=== PATIENT | female | born 1985 | race Caucasian/White ===

== ENCOUNTER 2018-12-01 13:49 | Emergency (ER) | payer MEDICAID, SELFPAY ==
[2018-12-01 13:53] VITALS: BP 126/95; PULSE 91; RESP 16; TEMP 36.3; O2SAT 99
--- NOTE | 2018-12-01 13:55 | W.ED.GENAD ---
Discharge Plan Disposition Patient Disposition: HOME Condition: Fair Discharge Details Chief Complaint: RashLesion Clinical Impression: Urticaria Primary Care Provider: Abad Rendon ED Provider: Laura Lambert Home Meds and New Rx's Prescriptions: New prednisone 20 mg tablet 40 mg PO DAILY Qty: 8 RF: 0 Discharge Instructions Instructions: Urticaria (ED) Additional Instructions: You may continue with the Calamine lotion to help with symptoms. May try Hydrocortisone cream. Take steroids as prescribed. Please call primary care today and follow up with them next week for reevaluation. May continue with Benadryl at night. If you develop shortness of breath, difficulty breathing or other new/worsening symptoms please seek care urgently once again. Referrals: Abad Rendon MD [Primary Care Provider] - Medical Decision Making Patient is a 33 year old female presenting today with c/c of diffuse rash. Reports that rash initially began on lower extremities and has since spread to abdomen and upper extremities. Also endorses itching to face. Denies any known new exposure. Reports that she has sensitive skin and history of eczema. Denies rash like this previously. No fevers/chills, GI upset, URI symptoms. Has been using calamine lotion and compresses which have help with symptomatic management. Has been using Benadryl at night. States that itching has become severe, worsened after taking a hot shower. Will obtain UPT. UPT negative. Advised that this is most consistent with allergic reaction, unclear cause. Will treat with Prednisone. Advised on topical and OTC options for sympatomic management. discussed new/worsening symptoms and hwen to seek care urgently once again. Advised f/u with PCP next week. All of her questions and concerns were addressed, she is in agreement yash hanks. HPI General Mode of arrival: ambulatory. Date/Time Provider Initiated Documentation: 12/01/18 13:50. Limitations to Documentation: no limitations. Information obtained by: patient. History of Present Illness 33 year old F presents to the emergency department with the chief complaint of rash, described as moderate, Quality is described as burning (endorses itching primarily, can burn after shower), and is localized to the abdomen, left, right, upper extremity and lower extremity. Patient started experiencing this day(s) (3) and it has been constant. Cold therapy improves symptom(s), (can help with itching) Other factors that worsen symptoms (showering) . Patient notes rash; denies chest pain, cough, fever/chills, headaches, nausea/vomiting, shortness of breath and weakness. Patient did receive the following treatments prior to arrival, none Related Data Home Medications Medication Instructions Recorded Confirmed prednisone 40 mg PO DAILY #8 tab 12/01/18 Previous Rx's Medication Instructions Recorded prednisone 40 mg PO DAILY #8 tab 12/01/18 Allergies Allergy/AdvReac Type Severity Reaction Status Date / Time No Known Drug Allergies Allergy Unverified 12/01/18 13:56 Review of Systems Constitutional Reports as per HPI, Denies chills and Denies fever(s) ENT Denies mouth lesions, Denies nasal congestion, Denies nasal discharge, Denies sore throat, Denies throat swelling and Denies tongue swelling Cardiovascular Denies chest pain and Denies dyspnea Respiratory Denies cough, Denies dyspnea, Denies stridor and Denies wheezing Gastrointestinal Reports as per HPI, Denies abdominal pain, Denies diarrhea and Denies nausea Musculoskeletal Reports as per HPI Integumentary/Breasts Reports as per HPI and Reports rash Neurologic Reports as per HPI, Denies sensory deficit and Denies paresthesias Allergic/Immunologic Denies throat swelling, Denies tongue swelling and Denies wheezing [facility] Medical History Contraception management depression associated with third Social History Smoking/Tobacco Use Status: Never Exam Const General: cooperative, healthy appearing, comfortable, no acute distress and well developed Nutritional Appearance: average body habitus and well nourished Orientation: alert and awake [facility] Head: normal to inspection Ears: hearing grossly normal bilaterally General nose exam: external nose normal Face and sinus: normal facial exam Mouth: oral mucosae normal, lip normal, tongue normal and oropharynx normal Teeth and gingiva: dentition normal Throat: posterior oropharynx normal, tonsils normal and uvula midline Eyes General: appearance normal, both eyes and all related structures Resp Effort & Inspection: normal respiratory effort, able to speak in complete sentences and no respiratory distress Auscultation: clear to auscultation bilaterally, no rales, no rhonchi and no wheezes Cardio Rate: regular rate Rhythm: regular rhythm Heart Sounds: S1 normal Skin Rashes: rashes noted (urticarial rash to BLE, primarily on thigh, BUE, kandy on abdomen) Neuro General: alert and awake Cognition: normal cognition Speech: speech normal Gait: normal gait Sensory Exam: no sensory deficits noted Extrem General: abnormal to inspection (rash as above with excoriations to BLE), full ROM, normal capillary refill, no joint enlargement, no pedal edema, no calf tenderness and normal gait Psych Appearance: grossly normal and well kempt Mental Status: mental status grossly normal Speech and Movement: speech and movement normal
--- NOTE | 2018-12-01 14:00 | ED.GENADUL_ITS ---
Discharge Plan Disposition Patient Disposition: HOME Condition: Fair Discharge Details Chief Complaint: RashLesion Clinical Impression: Urticaria Primary Care Provider: Abad Rendon ED Provider: Laura Lambert Home Meds and New Rx's Prescriptions: New prednisone 20 mg tablet 40 mg PO DAILY Qty: 8 RF: 0 Discharge Instructions Instructions: Urticaria (ED) Additional Instructions: You may continue with the Calamine lotion to help with symptoms. May try Hydrocortisone cream. Take steroids as prescribed. Please call primary care today and follow up with them next week for reevaluation. May continue with Benadryl at night. If you develop shortness of breath, difficulty breathing or other new/worsening symptoms please seek care urgently once again. Referrals: Abad Rendon MD [Primary Care Provider] - Medical Decision Making Patient is a 33 year old female presenting today with c/c of diffuse rash. Reports that rash initially began on lower extremities and has since spread to abdomen and upper extremities. Also endorses itching to face. Denies any known new exposure. Reports that she has sensitive skin and history of eczema. Denies rash like this previously. No fevers/chills, GI upset, URI symptoms. Has been using calamine lotion and compresses which have help with symptomatic management. Has been using Benadryl at night. States that itching has become severe, worsened after taking a hot shower. Will obtain UPT. UPT negative. Advised that this is most consistent with allergic reaction, uncl ear cause. Will treat with Prednisone. Advised on topical and OTC options for sympatomic management. discussed new/worsening symptoms and hwen to seek care urgently once again. Advised f/u with PCP next week. All of her questions and concerns were addressed, she is in agreement yash hanks. HPI General Mode of arrival: ambulatory . Date/Time Provider Initiated Documentation: 12/01/18 13:50 . Limitations to Documentation: no limitations . Information obtained by: patient . History of Present Illness 33 year old F presents to the emergency department with the chief complaint of rash, described as moderate, Quality is described as burning (endorses itching primarily, can burn after shower), and is localized to the abdomen, left, right, upper extremity and lower extremity. Patient started experiencing this day(s) (3) and it has been constant. Cold therapy improves symptom(s), (can help with itching) Other factors that worsen symptoms (showering) . Patient notes rash; denies chest pain, cough, fever/chills, headaches, nausea/vomiting, shortness of breath and weakness. Patient did receive the following treatments prior to arrival, none Related Data Home Medications Medication Instructions Recorded Confirmed prednisone 40 mg PO DAILY #8 tab 12/01/18 Previous Rx's Medication Instructions Recorded prednisone 40 mg PO DAILY #8 tab 12/01/18 Allergies Allergy/AdvReac Type Severity Reaction Status Date / Time No Known Drug Allergies Allergy Unverified 12/01/18 13:56 Review of Systems Constitutional Reports as per HPI, Denies chills and Denies fever(s) ENT Denies mouth lesions, Denies nasal congestion, Denies nasal discharge, Denies sore throat, Denies throat swelling and Denies tongue swelling Cardiovascular Denies chest pain and Denies dyspnea Respiratory Denies cough, Denies dyspnea, Denies stridor and Denies wheezing Gastrointestinal Reports as per HPI, Denies abdominal pain, Denies diarrhea and Denies nausea Musculoskeletal Reports as per HPI Integumentary/Breasts Reports as per HPI and Reports rash Neurologic Reports as per HPI, Denies sensory deficit and Denies paresthesias Allergic/Immunologic Denies throat swelling, Denies tongue swelling and Denies wheezing [facility] Medical History Contraception management depression associated with third Social History Smoking/Tobacco Use Status: Never Exam Const General: cooperative, healthy appearing, comfortable, no acute distress and well developed Nutritional Appearance: average body habitus and well nourished Orientation: alert and awake [facility] Head: normal to inspection Ears: hearing grossly normal bilaterally General nose exam: external nose normal Face and sinus: normal facial exam Mouth: oral mucosae normal, lip normal, tongue normal and oropharynx normal Teeth and gingiva: dentition normal Throat: posterior oropharynx normal, tonsils normal and uvula midline Eyes General: appearance normal, both eyes and all related structures Resp Effort & Inspection: normal respiratory effort, able to speak in complete se ntences and no respiratory distress Auscultation: clear to auscultation bilaterally, no rales, no rhonchi and no wheezes Cardio Rate: regular rate Rhythm: regular rhythm Heart Sounds: S1 normal Skin Rashes: rashes noted (urticarial rash to BLE, primarily on thigh, BUE, kandy on abdomen) Neuro General: alert and awake Cognition: normal cognition Speech: speech normal Gait: normal gait Sensory Exam: no sensory deficits noted Extrem General: abnormal to inspection (rash as above with excoriations to BLE), full ROM, normal capillary refill, no joint enlargement, no pedal edema, no calf tenderness and normal gait Psych Appearance: grossly normal and well kempt Mental Status: mental status grossly normal Speech and Movement: speech and movement normal
== END 2018-12-01 14:26 | disposition home or self-care (01) ==
LOC: ER 14:34
PROVIDERS: Emergency Provider Physician Assistant; PCP Internal Medicine
DX: L50.9 Urticaria, unspecified (principal)
CPT/HCPCS: 81025; 99283

== ENCOUNTER 2020-04-23 17:53 | Outpatient (REF) | payer MEDICAID, SELFPAY ==
[2020-04-25 13:01] LABS: COVID-19 RT-PCR UVMMC Result Negative (Negative)
== END 2020-04-23 18:13 ==
LOC: NCHCN 17:53
PROVIDERS: PCP Internal Medicine; Visit Provider Nurse Practitioner Family
DX: Z11.59 Encounter for screening for other viral diseases (principal)
CPT/HCPCS: U0003

== ENCOUNTER 2020-09-02 00:41 | Outpatient (CLI) | payer MEDICAID, SELFPAY ==
--- NOTE | 2020-09-02 06:15 | DI.MAMMO_ITS ---
EXAM: MG MAMMO DIAGNOSTIC BI CLINICAL HISTORY: B/L nipple discharge, spontaneous,[id number]. COMPARISON: US US BREAST RT COMPLETE from 09/02/2020 TECHNIQUE: Craniocaudal and mediolateral oblique Full Field Digital Mammography views of the both br easts with Computer Aided Diagnosis followed by Tomosynthesis and bilateral breast ultrasound. FINDINGS: Mammography/Tomosynthesis: Masses/Architectural Distortion: None seen. Microcalcifications: No suspicious pleomorphic-type are seen. Skin Thickening/Nipple Retraction: None. Breast US: Echotexture: Normal appearance of the glandular tissue. Shadowing: No suspicious foci. Cyst: Small cysts, measuring less than 1 cm are seen in the spine subareolar regions of both breasts. Solid lesions: None seen. Ductal dilation: None. IMPRESSION: 1. No evidence of malignancy is noted. 2. Unless there is more urgent need, follow-up screening mammography is recommended, as per [place] [employer] guidelines. BI-RADS Category 2 - Benign Findings Breast Density - Category C - Heterogeneously dense The mammogram demonstrates the patient's breast tissue is dense. Dense breast tissue is very common a nd is not abnormal but dense breast tissue can make it harder to find cancer on a mammogram. Also, de nse breast tissue may increase their breast cancer risk. This information about the result of the [facility] mogram report was provided to the patient to raise their awareness. Use this report when you speak wi th the patient about their risks for breast cancer, which includes their family history. At that time , you may recommend for more screening tests (Ultrasound or MRI) as they might be useful based on the ir risk. A negative radiographic report should not delay biopsy if a dominant or clinically suspicious mass is present. Up to ten percent of cancers are not identified on mammography. A negative report may reinforce clinical impression. Adenosis and dense breasts may obscure an underlying neoplasm. False positive reports average 6 to 10%. Patient will receive a letter notifying them of these results.
== END 2020-09-02 01:01 ==
PROVIDERS: PCP Internal Medicine; Visit Provider Obstetrics & Gynecology
DX: N64.52 Nipple discharge (principal); N60.02 Solitary cyst of left breast; N60.01 Solitary cyst of right breast; R92.2 Inconclusive mammogram
CPT/HCPCS: 76642; 77062; 77066; G0279

== ENCOUNTER 2020-10-06 16:25 | Outpatient (REF) | payer MEDICAID, SELFPAY ==
[2020-10-06 20:09] LABS: Abs Immature Grans 0.02 10^3/uL (0.0-0.06); Absolute Basophil Count 0.02 10^3/uL (0.0-0.2); Absolute Eosinophil Count 0.34 10^3/uL (0.0-0.7); Absolute Lymphocyte Count 1.87 10^3/uL (1.2-3.4); Absolute Monocyte Count 0.36 10^3/uL (0.1-0.8); Absolute Neutrophil Count 4.18 10^3/uL (1.2-6.7); Basophils % 0.3; HCT 36.9 % (36.0-46.0); Immature Grans % 0.3; Lymphocytes % 27.5; MCH 30.2 pg (27.0-33.0); MCHC 32.5 % (32.0-36.0); MCV 92.9 fL (80-95); MPV 10.7 fL (8.0-11.0); Monocytes % 5.3; Neutrophils % 61.6; Nucleated RBC 0 %; Platelet Count 208 10^3/uL (130-400); RBC 3.97 10^6/uL (3.93-5.22); RDW 12.7 % (11.7-14.6); RDW-SD 43.8 fL; WBC 6.79 10^3/uL (4.4-10.8)
[2020-10-06 20:37] LABS: ALT 14 U/L (14-59); AST 14 U/L (15-37); Alkaline Phosphatase 73 U/L (46-116); BUN 15 mg/dL (7-18); Bilirubin, Total 0.8 mg/dL (0.2-1.0); CREATININE 0.82 mg/dL (0.55-1.02); Calcium 8.8 mg/dL (8.5-10.1); Chloride 104 mmol/L (98-107); Glucose 96 mg/dL (74-106); Potassium 4.5 mmol/L (3.5-5.1); Sodium 138 mmol/L (136-145); TSH (W/Ref FT4) 1.36 uIU/mL (0.36-3.74); Total Protein 7.5 g/dL (6.4-8.2)
== END 2020-10-06 16:45 ==
LOC: NCHCN 16:25
PROVIDERS: PCP Nurse Practitioner; Visit Provider Nurse Practitioner
DX: Z13.29 Encounter for screening for other suspected endocrine disorder (principal); R51.9 Headache, unspecified
CPT/HCPCS: 80053; 84443; 85025

== ENCOUNTER 2021-09-16 02:16 | Outpatient (CLI) | payer MEDICAID, SELFPAY ==
--- NOTE | 2021-09-16 08:30 | DI.US_ITS ---
Exam(s) US PELVIS TRANSVAGINAL EXAM: US PELVIS TRANSVAGINAL CLINICAL HISTORY: anatomy,DYSFUNCTIONAL UTERINE BLEEDING,PELVIC PAIN,OLIGOMENORRHEA,N93.8 TECHNIQUE: Ultrasound of the pelvis was performed both transabdominal and transvaginal. COMPARISON: No exams were available for comparison FINDINGS: UTERUS: Anteverted and nongravid Measures 7.6 cm length x 5 cm AP x 5 cm wide. There are no uterine fibroids. Endometrial thickness measures 1.2 mm. There is no fluid in the endometrial canal. CERVIX: There are no obvious nabothian cysts. RIGHT OVARY: Measures 3.1 x 2.1 x 2.8 cm Contains a cyst measuring 1.6 x 2 x 1.5 cm. This cyst contains a thin septation therein. LEFT OVARY: The left ovary was not able to be seen on this study. This is possibly related to abundant bowel loo ps. CUL-DE-SAC: No free fluid evident. IMPRESSION: 1. Normal appearing uterus and age-appropriate endometrium. 2. There is a septated 2 x 16 millimeters cyst in the right ovary. Left ovary was not seen on this s tudy. 3. No free fluid evident in the adnexal regions and cul-de-sac. DATA REPOSITORY:
== END 2021-09-16 02:36 ==
PROVIDERS: PCP Nurse Practitioner; Visit Provider Obstetrics & Gynecology
DX: N91.5 Oligomenorrhea, unspecified (principal); N93.8 Other specified abnormal uterine and vaginal bleeding; R10.2 Pelvic and perineal pain; N83.291 Other ovarian cyst, right side
CPT/HCPCS: 36415; 80053; 76830; 76856; 83001; 83002; 83498; 84146; 84443

== ENCOUNTER 2021-10-21 17:38 | Outpatient (CLI) | payer MEDICAID, SELFPAY ==
--- NOTE | 2021-10-21 | DI.RAD_ITS ---
Exam(s) XR ANKLE RT COMPLETE EXAM: XR ANKLE RT COMPLETE CLINICAL HISTORY: FALL WITH INVERSION INJURY/PERSISTANT PAIN RIGHT POSTERIOR ,MALEOLUS. TECHNIQUE: 2D digital imaging was performed. COMPARISON: No exams were available for comparison FINDINGS: Mild soft tissue swelling laterally but no fracture or widening of the mortise. Talar dome unremarka ble. No degenerative changes nor osseous lesions. No evidence of osseous tarsal coalition. IMPRESSION: No fracture evident. DATA REPOSITORY: RADIATION DOSE DELIVERED:
--- NOTE | 2021-10-21 18:26 | DI.VRAD_ITS ---
PROCEDURE INFORMATION: Exam: XR Right Ankle Exam date and time: 10/21/2021 17:46 Age: 35 years old Clinical indication: Injury or trauma; Fall; Sprain or strain; Ankle; Right TECHNIQUE: Imaging protocol: XR Right ankle. Views: 3 or more views. COMPARISON: No relevant prior studies available. FINDINGS: Bones/joints: No acute fracture or subluxation. Soft tissues: Lateral ankle soft tissue swelling. IMPRESSION: No acute bony pathology. Dictated and Authenticated by: Ayesha Trinidad MD. Ordering:PRISCILLA Mirza MD
== END 2021-10-21 17:58 ==
PROVIDERS: PCP Nurse Practitioner; Visit Provider Family Medicine
DX: M25.571 Pain in right ankle and joints of right foot (principal); R22.41 Localized swelling, mass and lump, right lower limb
CPT/HCPCS: 73610

== ENCOUNTER 2022-01-07 22:25 | Emergency (ER) | payer MEDICAID, SELFPAY ==
[2022-01-07 22:26] VITALS: BP 125/78; PULSE 87; RESP 18; TEMP 36.9; O2SAT 98
[2022-01-07] MEDS: Ondansetron O.D.T. 4 MG TABEF PO ×2 (22:34→23:33)
[2022-01-07] MEDS: Ondansetron O.D.T. 4 MG TABEF (22:34)
--- NOTE | 2022-01-07 23:14 | W.ED.GENAD ---
Discharge Plan Disposition Patient Disposition: HOME Condition: Stable Discharge Details Clinical Impression: Alcohol abuse Primary Care Provider: Eliana Hutchins ED Provider: lAlyson Travis Home Meds and New Rx's Prescriptions: Continued Excedrin Migraine 250-250-65 mg tablet 1 tab PO PRN PRN0RF omega-3 fatty acids [Fish Oil Concentrate] 1,000 mg capsule 1,000 mg PO DAILY PRN0RF magnesium oxide 500 mg capsule 500 mg PO DAILY PRN0RF etonogestrel-ethinyl estradiol [NuvaRing] 0.12-0.015 mg/24 hr ring 1 vag ring vaginal Q4W Qty: 3 3RF Rx Instructions: leave in place for 3 weeks of a 4-week cycle Discharge Instructions Instructions: Abuse of Alcohol (ED) Additional Instructions: You will be contacted by [facility] human services tomorrow to establish care with a counselor Please take Zofran as needed for nausea and vomiting You may want to stick to clear liquids including Gatorade in the morning Ibuprofen and Tylenol as needed for headache Should you have thoughts of wanting to harm yourself you must return to the emergency room immediately I am listing a provider for you to follow-up with, if you do not hear from them in the morning tomorrow please call to schedule an appointment Referrals: BART SANDHU [OTHER] - 1 day (domestic issue) Eliana Hutchins [Primary Care Provider] - Discharge Data Discharge Date/Time-TO BE ENTERED AT DEPARTURE: 01/08/22 00:13 Medical Decision Making Patient appears intoxicated but is pleasant alert and oriented She is quite nauseous and has vomited several times Her vitals are stable She adamantly denies suicidal ideation and her friend Gayathri who she was with this evening states that she has not mentioned any suicidality in fact patient states that she has been able to continue on with her daily work schedule and taking care of her kids which is actually helping She does state that she has had trouble finding a counselor and she has been proactive about doing fair in the past week since she found out situation with her I therefore contacted our on-[facility], Lois who will call patient tomorrow should she be discharged At 2345, patient is vomiting, we will be sure patient is able to stand with one person assist and discharge her in the care of her friend who will stay with her overnight should she be able to be assisted out to her vehicle and into her home I think at time of my reassessment, she is safe for discharge with a friend, Vanita who has agreed to accept care of patient at time of discharge and will stay with her over the evening HPI General Date/Time Provider Initiated Documentation: 01/07/22 22:30. HPI Narrative: This 36-year-old female presents with report of intoxication from alcohol. Patient reportedly is going through a difficult time with her and this evening drank a bottle of wine with her friend who was there for support. Patient a dose of melatonin because she was tired and fell asleep. She was snoring loudly with me and her friend nervous and called 911. EMS arrived and patient was very anxious and so they brought her to the emergency room for assessment. Patient denies any suicidal ideation. She denies any attempts to harm self. She states that she simply drink alcohol because she was stressed this evening. She does not reportedly drink alcohol on a regular basis. There is no chance of . She denies any additional illicit drug use. She adamantly denies any intent to harm herself. She did take 5 mg of melatonin. Related Data Home Medications Medication Instructions Recorded Confirmed bjilasn-llylzdkbfrumw-opskgidl 250 1 tab PO PRN PRN tab 04/14/21 08/20/21 mg-250 mg-65 mg tablet (Excedrin Migraine) magnesium oxide 500 mg capsule 500 mg PO DAILY PRN cap 08/20/21 08/20/21 omega-3 fatty acids 1,000 mg 1,000 mg PO DAILY PRN 08/20/21 08/20/21 capsule (Fish Oil Concentrate) etonogestrel 0.12 mg-ethinyl 1 vag ring VAGINAL Q4W #3 ea 10/02/21 10/02/21 estradiol 0.015 mg/24 hr vaginal ring (NuvaRing) Previous Rx's Medication Instructions Recorded etonogestrel 0.12 mg-ethinyl 1 vag ring VAGINAL Q4W #3 ea 10/02/21 estradiol 0.015 mg/24 hr vaginal ring (NuvaRing) Allergies Allergy/AdvReac Type Severity Reaction Status Date / Time No Known Drug Allergies Allergy Verified 08/20/21 08:11 dogs Allergy Mild Uncoded 08/20/21 08:11 General Stated Complaint: GenMedical [place]: 3 Review of Systems All systems reviewed & are unremarkable except as noted in HPI and below PFSH All Active Problems Alcohol abuse (Chronic) Pelvic pain (Acute) Oligomenorrhea (Acute) DUB (dysfunctional uterine bleeding) (Acute) Medication overuse headache (Acute) Migraine headache without aura (Acute) Medical History Depression with anxiety DUB (dysfunctional uterine bleeding) Headache History of tobacco use Hx of suicide attempt Medication overuse headache Migraine headache without aura Oligomenorrhea Pelvic pain Social History Smoking/Tobacco Use Status: Never Smoking risk assessment performed?: Yes Alcohol Intake: current Alcohol Intake frequency: other Alcohol type: wine Drug use: Never Substance use type: does not use Household members: spouse and children Housing: apartment Number of Children: 3 Pets and animals: Yes Pets and animals: dog(s) and hamster(s) What is your relationship status?: Panel score (0-1 are the most socially isolated patients): 1 What type of physical activity do you participate in: yoga and additional Details: cardio Seatbelt use: always Do you feel safe at home: Yes Do you feel safe in your relationship?: Yes History History 5 Para 3 Hx # Term Pregnancies Multiple births Hx # Pregnancies Ectopic pregnancies AB induced Hx Number of Living Children AB spontaneous Exam Const General: cooperative, no acute distress and intoxicated appearing Orientation: alert and oriented x3 HENMT Head: normal to inspection Mouth: oral mucosae normal Eyes Pupils: PERRL Resp Effort & Inspection: normal respiratory effort Cardio Rate: regular rate Rhythm: regular rhythm GI Inspection: normal to inspection Neuro General: patient alert and patient oriented x3 Other: slowed speech GCS 15, ambulatory with steady gait Psych Appearance: well kempt Speech and Movement: slowed movement Mood: anxious mood Affect: normal affect Attitude: cooperative Thought Process: normal Thought Content: normal Insight: insight good Judgment: fair Course Vital Signs Vital signs: Vital Signs Temperature 36.9 C 01/07/22 22:26 Pulse 87 01/07/22 22:26 Respiratory Rate 18 01/07/22 22:26 Blood Pressure 125/78 01/07/22 22:26 Pulse Oximetry 98 01/07/22 22:26 Temperature 36.9 C 01/07/22 22:26 Temperature Source Tympanic 01/07/22 22:26 Pulse 87 01/07/22 22:26 Respiratory Rate 18 01/07/22 22:26 Respiratory Effort 01/07/22 22:33 Respiratory Depth Normal 01/07/22 22:33 Respiratory Pattern Normal 01/07/22 22:33 Blood Pressure 125/78 01/07/22 22:26 Blood Pressure Position Supine 01/07/22 22:26 Pulse Oximetry 98 01/07/22 22:26 Oxygen Delivery Method Room Air 01/07/22 22:26 Oxygen Flow Rate 0 01/07/22 22:26 Pain Level 0 01/07/22 22:26 PAWSS Have you Been Recently Intoxicated or Drunk Within the Last 30 days?: Yes Have you Ever Experienced Previous Episodes of Alcohol Withdrawal?: No Have you ever Experienced Withdrawal Seizures?: No Have you ever Experienced Delirium Tremens(DT)s?: No Have you ever undergone Alcohol Rehabilitation Treatment (i.e, inpt ot outpatient treatment programs)?: No Have you ever Experienced Blackouts?: No Have you ever Combined Alcohol with other Downers within the last 90 days?: Yes Have you ever Combined Alcohol with any other Substance of Abuse during the last 90 days?: Yes Positive Blood Alcohol level on Presentation? [PCS.BAL]: Yes Evidence of Increased Autonomic Activity (i.e. HR>120, tremor, sweating, agitation, nausea)?: No Result: 4
--- NOTE | 2022-01-07 23:23 | NUR.NOTE ---
Nursing Note: pt having nausea and vomiting. PA aware.
[2022-01-08 00:06] VITALS: BP 122/84; PULSE 84; RESP 20; O2SAT 99
[2022-01-08] MEDS: Ondansetron O.D.T. 4 MG TABEF, 3 TABS/BTL PO (00:09)
== END 2022-01-08 00:13 | disposition home or self-care (01) ==
PROVIDERS: Emergency Provider Physician Assistant; PCP Nurse Practitioner
DX: F10.129 Alcohol abuse with intoxication, unspecified (principal); R11.2 Nausea with vomiting, unspecified
CPT/HCPCS: 99283

== ENCOUNTER 2022-03-18 16:52 | Outpatient (REF) | payer MEDICAID, SELFPAY ==
[2022-03-19 15:03] LABS: Chlamydia Result Negative (Negative); GC Result Negative (Negative)
== END 2022-03-18 16:53 | disposition home or self-care (01) ==
LOC: NCHCN 16:52
PROVIDERS: PCP Nurse Practitioner; Visit Provider Nurse Practitioner Family
DX: Z11.3 Encounter for screening for infections with a predominantly sexual mode of transmission (principal)
CPT/HCPCS: 80053; 80061; 87491; 87591

== ENCOUNTER 2022-12-24 03:39 | Emergency (ER) | payer MEDICAID, SELFPAY ==
[2022-12-24 03:43] VITALS: BP 165/105; PULSE 92; RESP 16; TEMP 36.5; O2SAT 100
--- NOTE | 2022-12-24 03:45 | RT.EKG_ITS ---
APPROVED REPORT Exam: Resting ECG Reason for Exam: trouble breathing Patient Location: E HR:93 bpm ECG Measurements Heart Rate 93 AXIS ID 148 P 75 QRSd 98 QRS 60 QT 374 T 58 QTc 465 Conclusion Sinus rhythm...normal P axis, V-rate 60- 99 Physician: no stemi, no [id number]
--- NOTE | 2022-12-24 03:45 | DI.RAD_ITS ---
Exam(s) XR PORTABLE CHEST AP EXAM: XR PORTABLE CHEST AP CLINICAL HISTORY: cough 2 weeks, r/o pneumonia. TECHNIQUE: 2D digital imaging was performed. COMPARISON: CR CHEST 2 VIEWS PA,LAT from 07/24/2013 FINDINGS: Single AP portable view. Heart size is upper normal. The mediastinum is not widened. Lungs are clear. No infiltrates nor obvious pleural effusions. Some scarring in the left lung base is noted adjacent to the heart border. IMPRESSION: No acute pulmonary findings on this single AP portable view of the chest. DATA REPOSITORY: RADIATION DOSE DELIVERED:
--- NOTE | 2022-12-24 04:04 | ED.GENADUL_ITS ---
Discharge Plan Disposition Patient Disposition: Home Condition: Good Discharge Details Clinical Impression: Exacerbation of reactive airway disease Primary Care Provider: ESTEFANY ORTIZ ED Provider: Krishna Sibley Home Meds and New Rx's Prescriptions: No Action Excedrin Migraine 250-250-65 mg tablet 1 tab PO PRN PRN magnesium oxide 500 mg capsule 500 mg PO DAILY PRN folic acid 400 mcg tablet 0.4 mg PO DAILY buspirone 5 mg tablet 5 mg PO DAILY amoxicillin 500 mg capsule 1 cap PO BID Label Comments: TAKE 2 CAPSULES BY MOUTH IMMEDIATELY THEN TAKE 1 CAPSULE FOUR TIMES DAILY UNTIL FINISHED Discharge Instructions Instructions: Reactive Airways Disease (ED) Additional Instructions: At this time I suspect that the 2 episodes of the viral infection that you had [id number] likely caused mild bronchitis and reactive airway disease in this scenario. Please use the Symbicort inhaler, 2 puffs every 12 hours for the next week. If you notice any worsening of your symptoms, or any new symptoms such as vomiting, diarrhea, fever, chills, shortness of breath, chest pain, numbness, weakness, or fainting , please return immediately to the emergency department for reevaluation. Please follow up with your primary care provider as soon as possible for reassessment and reevaluation. As always, it was a pleasure participating in your medical care today. Referrals: ESTEFANY ORTIZ, PILLOW FILLER [Primary Care Provider] - Medical Decision Making 37-year-old female with a past medical history of PCOS, presents today for evaluation of shortness of breath. Patient states that about 2 weeks ago she had influenza, as soon as she got over influenza she then developed new symptoms of congestion, cough, mild shortness of breath. She tested for COVID and this was negative. She admits to a tight feeling in her chest. She admits to wheezing with a mildly productive cough. Symptoms appear to be worsening, and have not been improving. She denies any current fever or chills. She admits to scant traces of blood in her sputum with notable cough. Denies PE risk factors such as recent long car rides, immobilization, recent surgery, prior history of DVT or PE, family history of PE or DVT, morbid obesity, exogenous estrogen and smoking, hemoptysis, history of cancer. She denies any history of tobacco use or previous asthma. No other complaints at this time. No other modifying factors. Exam demonstrates well-appearing female, vital signs are very stable. No hypoxemia. Lungs are surprisingly clear. No significant wheezes rhonchi or rales. Bedside ultrasound was performed and shows no evidence of significant infiltrate that I can appreciate. We will get fluid for testing, portable chest x-ray, give a breathing treatment, monitor closely and reassess. EKG was performed and demonstrates no evidence of STEMI, no signs of right heart strain. No S1Q3T3. 4:24 AM Patient feels much better after breathing treatment. Tightness has resolved. EKG is benign. Chest x-ray shows no evidence of significant pneumonia. Symptoms consistent with mild reactive airway disease exacerbation. Will give Symbicort inhaler for home use. No indication for antibiotic treatment at this time as there is no evidence of bacterial component. Discussed red flags for which to return. I have extensively reviewed the treatment plan and discharge instructions with the patient. I have addressed all patient concerns at this time. The patient was made aware of what symptoms to monitor for that would warrant a return to the emergency department. Discussed the plan with the patient, they demonstrate verbal understanding and agreement with our assessment and plan at this time. The documentation in this chart was dictated using Chatter[employer] dictation software. Please excuse any dictation errors. FINDINGS: Lungs: Unremarkable. No consolidation. Pleural spaces: Unremarkable. No pleural effusion. No pneumothorax. Heart/Mediastinum: Unremarkable. No cardiomegaly. Bones/joints: Unremarkable. IMPRESSION: No acute findings. Thank you for allowing us to participate in the care of your patient. Dictated and Authenticated by: Freeman Bridges DO 12/24/2022 5:05 AM Eastern Time ([place] & [place]) HPI General Date/Time Provider Initiated Documentation: 12/24/22 03:42 . HPI Narrative: 37-year-old female with a past medical history of PCOS, presents today for evaluation of shortness of breath. Patient states that about 2 weeks ago she had influenza, as soon as she got over influenza she then developed new symptoms of congestion, cough, mild shortness of breath. She tested for COVID and this was negative. She admits to a tight feeling in her chest. She admits to wheezing with a mildly productive cough. Symptoms appear to be worsening, and have not been improving. She denies any current fever or chills. She admits to scant traces of blood in her sputum with notable cough. Denies PE risk factors such as recent long car rides, immobilization, recent surgery, alexander or history of DVT or PE, family history of PE or DVT, morbid obesity, exogenous estrogen and smoking, hemoptysis, history of cancer. She denies any history of tobacco use or previous asthma. No other complaints at this time. No other modifying factors. Related Data Home Medications Medication Instructions Recorded Confirmed [id number] 250 1 tab PO PRN PRN 04/14/21 12/24/22 mg-250 mg-65 mg tablet (Excedrin Migraine) magnesium oxide 500 mg capsule 500 mg PO DAILY PRN 08/20/21 12/24/22 folic acid 400 mcg tablet 0.4 mg PO DAILY 01/19/22 12/24/22 buspirone 5 mg tablet 5 mg PO DAILY 04/06/22 amoxicillin 500 mg capsule 1 cap PO BID 12/24/22 12/24/22 Allergies Allergy/AdvReac Type Severity Reaction Status Date / Time No Known Drug Allergies Allergy Verified 12/24/22 03:47 dogs Allergy Mild Uncoded 12/24/22 03:47 General Stated Complaint: RespSymp [place]: 3 Review of Systems All systems reviewed & are unremarkable except as noted in HPI and below PFSH All Active Problems (Updated 12/24/22 @ 04:26 by Krishna Sibley DO) Exacerbation of reactive airway disease (Acute) Polycystic ovarian syndrome (Acute) Pelvic pain (Acute) Oligomenorrhea (Acute) DUB (dysfunctional uterine bleeding) (Acute) Medication overuse headache (Acute) Migraine headache without aura (Acute) Medical History Depression with anxiety Headache History of tobacco use Hx of suicide attempt Social History Smoking/Tobacco Use Status: Never Smoking risk assessment performed?: Yes Alcohol Intake: current Alcohol Intake frequency: other Alcohol type: wine Drug use: Never Substance use type: does not use Household members: spouse and children Housing: apartment Number of Children: 3 Pets and animals: Yes Pets and animals: dog(s) and hamster(s) What is your relationship status?: Panel score (0-1 are the most socially isolated patients): 1 What type of physical activity do you participate in: yoga and additional Details: cardio Seatbelt use: always Do you feel safe at home: Yes Do you feel safe in your relationship?: Yes History History 5 Para 3 Hx # Term Pregnancies Multiple births Hx # Pregnancies Ectopic pregnancies AB induced Hx Number of Living Children AB spontaneous Exam Narrative Exam Narrative: 1.Const: Well-nourished, Well-developed, appearing stated age 2.Eyes: PERRL, no conjunctival injection, and symmetrical lids. 3.ENT: Atraumatic external nose and ears. Moist MM. Neck: Symmetric, trachea midline, No thyromegaly. 4.CVS: +S1/S2, No murmurs or gallops. Peripheral pulses 2+ and equal in all extremities. Brisk capillary refill in all extremities. 5.RESP: Unlabored respiratory effort. Clear to auscultation bilaterally. No wheezes rales or rhonchi 6.GI: Soft, Nontender/Nondistended, No hepatosplenomegaly. No guarding or rebound. 7.MSK: Normocephalic/Atraumatic, Extremities w/o deformity or ttp No cyanosis or clubbing, Normal movement of all extremities 8.Skin: Warm, Dry. No rashes or lesions. 9.Neuro: drill runner II-XII grossly intact. Sensation grossly intact, no focal neurologic deficits. 10.Psych: (AAO) x3. Appropriate mood and affect Course Vital Signs Vital signs: Respiratory Effort 12/24/22 03:43 Pain Level 7 12/24/22 03:43 POCUS Exam (ED) Limited Thoracic Lung Exam DATE OF EXAM: 12/24/22 TIME OF EXAM: 04:07 PROVIDER THAT PERFORMED THE STUDY: Krishna Sibley IS THIS A REPEAT EXAM DURING THIS ENCOUNTER: No REASON FOR EXAM: Shortness ofBreath VISUALIZED STRUCTURES: right lateral, left lateral, right posterior and left posterior PERTINENT FINDINGS/IMPRESSION: No apparent abnormalities Exam complete
[2022-12-24] MEDS: Albuterol/Ipratropium 3 ML UPD VIAL (04:06)
[2022-12-24 04:33] LABS: COVID-19 PCR Negative (Negative); Influenza A PCR Negative (Negative); Influenza B PCR Negative (Negative); RSV PCR Negative (Negative)
[2022-12-24 04:38] LABS: Source Nasopharynx
--- NOTE | 2022-12-24 05:05 | DI.VRAD_ITS ---
PROCEDURE INFORMATION: Exam: XR Chest Exam date and time: 12/24/2022 3:40 AM Age: 37 years old Clinical indication: Patient HX: Cough 2 weeks, R/O pneumonia TECHNIQUE: Imaging protocol: Radiologic exam of the chest. Views: 1 view. COMPARISON: No relevant prior studies available. FINDINGS: Lungs: Unremarkable. No consolidation. Pleural spaces: Unremarkable. No pleural effusion. No pneumothorax. Heart/Mediastinum: Unremarkable. No cardiomegaly. Bones/joints: Unremarkable. IMPRESSION: No acute findings. Dictated and Authenticated by: Freeman Bridges MD. Ordering:MILE Keller MD
[2022-12-24] MEDS: Inhaler, Assist Device 1 EACH MC (05:10)
[2022-12-24] MEDS: Budesonide/Formoterol 160/4.5 6 GM 60 PUFF INH IH (05:11)
[2022-12-24 05:26] VITALS: BP 125/70; PULSE 86; RESP 16; TEMP 36.5; O2SAT 99
== END 2022-12-24 05:11 | disposition home or self-care (01) ==
PROVIDERS: Emergency Provider Student in an Organized Health Care Education/Training Program; PCP Nurse Practitioner Family
DX: J45.901 Unspecified asthma with (acute) exacerbation (principal); E28.2 Polycystic ovarian syndrome; Z20.822 Contact with and (suspected) exposure to COVID-19; Z79.82 Long term (current) use of aspirin
CPT/HCPCS: 76604; 87637; 93005; 94640; 99284; 71045; 93010; 99285; J7620

== ENCOUNTER 2023-01-18 18:09 | Outpatient (REF) | payer MEDICAID, SELFPAY ==
--- NOTE | 2023-01-18 15:45 | PAPFT_PTH ---
PATIENT: Karena Madden LOC: [facility]#:[id number] AGE/SX: 37/F ROOM: RE01/18/[address]: Lisset Catalan : 1985 BED: DIS: 01/18/2023 SPEC #: [id number] RECD: 01/19/23 12:54 STATUS: LEVI RERissa #: [id number] NADIRA: 01/18/23 15:[address]: Lisset Catalan DEPT: [facility] Cytology RECD BY: Allyson Hurley ENTERED: 01/19/23 12:55 SP TYPE: PAPFT RAVEN DR: ESTEFANY ORTIZ NP Tissues: 1 - CX/ENDOCX FOR PAP SMEARS Procedures: PAP THIN PREP/[facility] Screening HPV DNA PROBE Comments: [id number]
== END 2023-01-18 18:10 | disposition home or self-care (01) ==
LOC: NCHCN 18:09
PROVIDERS: PCP Nurse Practitioner Family; Visit Provider Nurse Practitioner Family
DX: Z12.4 Encounter for screening for malignant neoplasm of cervix (principal); Z11.51 Encounter for screening for human papillomavirus (HPV)
CPT/HCPCS: 88142; 87624

== ENCOUNTER 2023-09-30 07:25 | Emergency (ER) | payer SELFPAY ==
[2023-09-30 07:40] VITALS: BP 165/82; PULSE 100; RESP 20; TEMP 36.4; O2SAT 100
--- NOTE | 2023-09-30 07:46 | W.ED.GENAD ---
Discharge Plan Disposition Patient Disposition: Home Condition: Stable Discharge Details Clinical Impression: Bacterial vaginosis, Hemorrhagic ovarian cyst Primary Care Provider: Lisset Catalan ED Provider: Krishna Cosme Home Meds and New Rx's Prescriptions: New norgestimate-ethinyl estradiol [Sprintec (28)] 0.25-35 mg-mcg tablet 1 tab PO DAILY Qty: 84 0RF Rx Instructions: Take 3 pills p.o. x3 days, followed by 2 pills p.o. x2 days, followed by 1 pill daily to complete the pack ibuprofen 600 mg tablet 600 mg PO Q8H PRNQty: 30 1RF metronidazole 500 mg tablet 500 mg PO BID 10 Days Qty: 20 0RF Continued magnesium oxide 500 mg capsule 500 mg PO DAILY PRN Gummies 400 mcg-35 mg- 25 mg-5 mg tablet,chewable 1 tab PO DAILY Qty: 90 3RF Rx Instructions: ok to substitute budesonide-formoterol [Symbicort] 80-4.5 mcg/actuation HFA aerosol inhaler 2 puff inhalation BID PRN Discharge Instructions Instructions: Metronidazole (By mouth), Bacterial Vaginosis (ED), Ovarian Cyst (ED) Additional Instructions: You were seen in the emergency department for your diffuse lower abdominal pain, vaginal bleeding. Your hemoglobin is stable is not a large amount of blood in the vaginal vault. You have a 5.5 cm hemorrhagic ovarian cyst on your ultrasound, you were seen by [facility] PROFESSOR who prescribed you oral contraceptive pills which should help slow the bleeding in the coming days. Please take Tylenol and ibuprofen as needed for pain. You also had an incidental finding of bacterial vaginosis which I have sent the antibiotic metronidazole to [facility] in [place]. Please return to the emergency department for any severe increase in bleeding, any episodes of fainting or other signs of significant worsening blood loss especially with fever. Otherwise please follow-up with your OB appointments early next week. Referrals: [facility] [Provider Group] Lisset Catalan [Primary Care Provider] - Medical Decision Making This dictation utilizes [id number] dictation software and may contain unedited grammatical errors. 37 y/o F presents to ED today with a chief complaint of heavy vaginal bleeding with clots, 1 pad per hour, feelings of pre-syncope with this bleeding, and lower abdominal pain, exquisite that started with flank pain. Onset and characteristics include heavy bleeding for 2-3 days. Patient has relevant history of endometriosis, PCOS, miscarriage months ago, denies new sexual partners, fevers, vaginal discharge, denies abdominal surgical history. Family and social history: noncontributory. Pertinent exam findings / vital signs include exquisite left lower quadrant tenderness, mild suprapubic tenderness, no CVA tenderness bilaterally to percussion, McBurney's point tenderness, positive Rovsing's, mild tachycardia, no bryan blood in vaginal vault but there is scant bleeding, no purulent discharge. Differential / pathologies of concern include PID, Ovarian Torsion, Pyelonephritis, Fibroids, Ectopic , Renal Stone/Obstruction, TOA, NG/GC, UTI, Yeast/BV/Trich. Diagnostic studies of: -CBC, CMP, UA, Upreg, Lactate, NG/GC PCR, [place], PT/INR, PTT, Type & Screen, US Pelvic/TransVag & Renal. -HgB 10.8, IVF & re-check -Lactate 3.0, likely in the setting of bleeding -CBC no leukocytosis -PT/PTT/INR WNL -CMP shows very mild hypokalemia, would correct with normal dietary intake -NG/GC pending at d/c -[place] positive for BV -US Pelvic/Transvag shows 5.5cm hemorrhagic cyst- due to size consulted with OBGYN. US renal benign. -re-check of HgB after fluids shows 10.0, discussed with OBGYN- they sent OCPs to pharmacy and will follow-up with the patient outpt. Interventions of: -1L IVF to fill bladder for US, and to gauge anemia/bleeding with re-check of HgB. ED Course: 37-year-old female presents with heavy vaginal bleeding for the past 3 days and has been bleeding scantly for the past 2 weeks, history of PCOS, miscarriage months ago. There was scant blood in the vaginal vault, labs show positive for Gardnerella, 5.5 cm ovarian cyst hemorrhagic without free fluid in the pelvis. Discussed with OB and it is reasonable to follow-up as an outpatient. They are prescribing her OCPs, she received some OTC analgesia as through IV with adequate relief, I did prescribe her metronidazole for her BV. Findings not consistent with PID, acute hemorrhage, ecoptic , ovarian torsion, TOA, obstructive uropathy. Disposition of Hemorrhagic Ovarian Cyst, Bacterial Vaginosis. Assessment/Plan: Patient symptomatically improved with Tylenol and ibuprofen and reassurance during visit, was seen by [facility] PROFESSOR and arranged follow-up, has a hemorrhagic ovarian cyst, explained that her cyst is moderate-sized but should improve with the prescribed OCPs from [facility] PROFESSOR. Patient was comfortable for discharge. Patient verbalized understanding of the plan and return to ED criteria and engaged in shared decision making. Medical Records Medical records reviewed: Yes I reviewed the patient's medical records. Imaging Data Radiologic Study: Imaging: Ultrasound Radiologist's impression: EXAM: US RENAL PELVIC TRANSVAGINAL CLINICAL HISTORY: flank pain, now pelvic pain,bleeding,? torsion,abscess,fibroid,stone. TECHNIQUE: Ultrasound renal, pelvic, both abdmonal and tranvaginal was performed using standard protocol. COMPARISON: US US PELVIS TRANSVAGINAL from 09/16/2021 FINDINGS: RENAL: Renal size in cm: Right: 10.0 left: 10.8 Echogenicity: Normal. Hydronephrosis: No. Cyst or mass: No. Nephrolithiasis: No. Other findings: None. Bladder:Normal. Ureteral jets: Right: Visualized and unremarkable. Left: Visualized and unremarkable. Prevoid vol:39 cc Postvoid vol:0 cc Color: Symmetric and uniform flow to both kidneys. PELVIC: UTERUS: Position: Anteverted. Size: 8.9 x 5.1 x 6.4 cm Endometrium: 15 cm. Small amount of fluid/blood within endometrial cavity Myometrium: Unremarkable. Cervix: Unremarkable. OVARIES: Right: 1.4 x 4.2 x 5.5 cm cm Cyst or mass: 5.4 x 4.7 x 5.3 centimeter hemorrhagic cyst. No evidence of torsion Left: Not visualized. DOPPLER: Color: No hyperemia. Duplex: Normal ovarian arterial waveforms visualized. CUL-DE-SAC: Free fluid: None. IMPRESSION: 1. Normal sonographic appearance of the kidneys and bladder. 2. Small amount of fluid/hemorrhage within endometrial stripe. 3. Left ovary not visualized. 5.4 centimeter hemorrhagic cyst right ovary. Lab Data Labs: 09/30/23 08:25 Vaginal Vaginitis Screen - Final Laboratory Tests Range/Units 09/30/23 09/30/23 09/30/23 08:08 08:14 09:44 WBC (4.4-10.8) 10^3/uL 5.69 RBC (3.93-5.22) 10^6/uL 4.03 Hgb (11.2-15.7) g/dL 10.8 L Hct (36.0-46.0) % 33.8 L MCV (80-95) fL 84 MCH (27.0-33.0) pg 26.8 L MCHC (32.0-36.0) % 32.0 RDW (11.7-14.6) % 16.2 H Plt Count (130-400) 10^3/uL 189 MPV (8.0-11.0) fL 9.7 Immature Gran % 0.2 Neutrophils % 49.6 Lymphocytes % 37.8 Monocytes % 5.8 Eosinophils % 6.2 Basophils % 0.4 Nucleated RBC % (0.0-0.3) % 0.0 Absolute Neutrophils (1.2-6.7) 10^3/uL 2.83 Absolute Lymphocytes (1.2-3.4) 10^3/uL 2.15 Absolute Monocytes (0.1-0.8) 10^3/uL 0.33 Absolute Eosinophils (0.0-0.7) 10^3/uL 0.35 Absolute Basophils (0.0-0.2) 10^3/uL 0.02 PT (9.1-11.1) sec 9.8 INR (0.9-1.1) 1.0 APTT (23.6-32.8) sec 25.2 VBG Lactate (0.6-1.4) mmol/L 3.0 H* Sodium (136-145) mmol/L 138 Potassium (3.5-5.1) mmol/L 3.4 L Chloride (98-107) mmol/L 104 Carbon Dioxide (21.0-32.0) mmol/L 24.7 Anion Gap (3-11) mmol/L 9.3 BUN (7-18) mg/dL 12 Creatinine (0.55-1.02) mg/dL 0.9 Est GFR (CKD-EPI 2020) (mL/min/1.73m2) 84.97 Glucose (74-106) mg/dL 123 H Calcium (8.5-10.1) mg/dL 8.9 Total Bilirubin (0.2-1.0) mg/dL 0.5 AST (15-37) U/L 14 L ALT (14-59) U/L 19 Alkaline Phosphatase (46-116) U/L 86 Total Protein (6.4-8.2) g/dL 7.7 Albumin (3.4-5.0) g/dL 3.6 Urine Color (Yellow) Red Urine Clarity (Clear) Cloudy Urine pH (5-8) 5.5 Ur Specific [place] (1.005-1.025) 1.025 Urine Protein (Negative) mg/dL 30 H Urine Ketones (Negative) mg/dL Negative Urine Blood (Negative) Large H Urine Nitrite (Negative) Negative Urine Bilirubin (Negative) Negative Urine Urobilinogen (Up to 0.2) mg/dL 0.2 Ur Leukocyte Esterase (Negative) Negative Urine RBC (0-2) HPF >50 H Urine WBC (0-5) HPF 0-2 Ur Epithelial Cells (Negative) HPF Few Urine Crystals (Negative) HPF Negative Urine Bacteria (Negative) HPF Negative Urine Casts (Negative) LPF Negative Urine Mucus (Negative) Trace Ur Culture Indicated? No Urine Glucose (Negative) mg/dL Negative Patient ABO/Rh O Positive Antibody Screen NEGATIVE Range/Units 09/30/23 10:45 WBC (4.4-10.8) 10^3/uL RBC (3.93-5.22) 10^6/uL Hgb (11.2-15.7) g/dL 10.0 L Hct (36.0-46.0) % 30.6 L MCV (80-95) fL MCH (27.0-33.0) pg MCHC (32.0-36.0) % RDW (11.7-14.6) % Plt Count (130-400) 10^3/uL MPV (8.0-11.0) fL Immature Gran % Neutrophils % Lymphocytes % Monocytes % Eosinophils % Basophils % Nucleated RBC % (0.0-0.3) % Absolute Neutrophils (1.2-6.7) 10^3/uL Absolute Lymphocytes (1.2-3.4) 10^3/uL Absolute Monocytes (0.1-0.8) 10^3/uL Absolute Eosinophils (0.0-0.7) 10^3/uL Absolute Basophils (0.0-0.2) 10^3/uL PT (9.1-11.1) sec INR (0.9-1.1) APTT (23.6-32.8) sec VBG Lactate (0.6-1.4) mmol/L Sodium (136-145) mmol/L Potassium (3.5-5.1) mmol/L Chloride (98-107) mmol/L Carbon Dioxide (21.0-32.0) mmol/L Anion Gap (3-11) mmol/L BUN (7-18) mg/dL Creatinine (0.55-1.02) mg/dL Est GFR (CKD-EPI 2020) (mL/min/1.73m2) Glucose (74-106) mg/dL Calcium (8.5-10.1) mg/dL Total Bilirubin (0.2-1.0) mg/dL AST (15-37) U/L ALT (14-59) U/L Alkaline Phosphatase (46-116) U/L Total Protein (6.4-8.2) g/dL Albumin (3.4-5.0) g/dL Urine Color (Yellow) Urine Clarity (Clear) Urine pH (5-8) Ur Specific [place] (1.005-1.025) Urine Protein (Negative) mg/dL Urine Ketones (Negative) mg/dL Urine Blood (Negative) Urine Nitrite (Negative) Urine Bilirubin (Negative) Urine Urobilinogen (Up to 0.2) mg/dL Ur Leukocyte Esterase (Negative) Urine RBC (0-2) HPF Urine WBC (0-5) HPF Ur Epithelial Cells (Negative) HPF Urine Crystals (Negative) HPF Urine Bacteria (Negative) HPF Urine Casts (Negative) LPF Urine Mucus (Negative) Ur Culture Indicated? Urine Glucose (Negative) mg/dL Patient ABO/Rh Antibody Screen HPI General Date/Time Provider Initiated Documentation: 09/30/23 07:45. HPI Narrative: 37 year-old female presents to ED today by POV/ambulating with her [id number], with a chief complaint of vaginal bleeding for 2 weeks, heavy bleeding with clots with 1 pad per hour for the past 2-3 days- both preceded by flank pain. Patient notes a miscarriage months ago, endorses history of PCOS. Quality described as dizziness, pre-syncope, heavy bleeding, chills, no radiation to syncope, dysuria, chest pain, shortness of breath. Severity is described as 8/10. Palliating factors include nothing specific attempted. Provoking factors include nothing specific. Events leading up to the incident/Associated Symptoms: Patient questions historical diagnosis of endometriosis as well, denies new sexual partners/discharge. Patient not anticoagulated. Related Data Home Medications Medication Instructions Recorded Confirmed magnesium oxide 500 mg capsule 500 mg PO DAILY PRN 08/20/21 09/30/23 budesonide-formoterol HFA 80 2 puff inhalation BID PRN 02/16/23 09/30/23 mcg-4.5 mcg/actuation aerosol inhaler (Symbicort) PNV 153-FA 400 mcg-om3 35 mg-dha 1 tab PO DAILY #90 tabs 04/04/23 09/30/23 25 mg-epa 5 mg-fish oil chew tablet ( Gummies) ibuprofen 600 mg tablet 600 mg PO Q8H PRN #30 tabs 09/30/23 metronidazole 500 mg tablet 500 mg PO BID bacterial vaginosis 09/30/23 10 days #20 tabs norgestimate 0.25 mg-ethinyl 1 tab PO DAILY #84 tabs 09/30/23 estradiol 35 mcg tablet (Sprintec (28)) Previous Rx's Medication Instructions Recorded PNV 153-FA 400 mcg-om3 35 mg-dha 1 tab PO DAILY #90 tabs 04/04/23 25 mg-epa 5 mg-fish oil chew tablet ( Gummies) ibuprofen 600 mg tablet 600 mg PO Q8H PRN #30 tabs 09/30/23 metronidazole 500 mg tablet 500 mg PO BID bacterial vaginosis 09/30/23 10 days #20 tabs norgestimate 0.25 mg-ethinyl 1 tab PO DAILY #84 tabs 09/30/23 estradiol 35 mcg tablet (Sprintec (28)) Allergies Allergy/AdvReac Type Severity Reaction Status Date / Time sumatriptan Allergy Unknown Unverified 05/03/23 15:05 dogs Allergy Mild Uncoded 05/03/23 15:05 General Stated Complaint: [facility] PROFESSOR [place]: 3 Review of Systems All systems reviewed & are unremarkable except as noted in HPI and below PFSH All Active Problems (Updated 09/30/23 @ 11:19 by BLAISE Alves) Hemorrhagic ovarian cyst (Acute) Bacterial vaginosis (Acute) Hemorrhagic ovarian cyst (Acute) Delayed menses (Acute) Migraine headache without aura (Acute) Medication overuse headache (Acute) DUB (dysfunctional uterine bleeding) (Acute) Oligomenorrhea (Acute) Pelvic pain (Acute) Polycystic ovarian syndrome (Acute) Medical History Depression with anxiety Headache History of tobacco use Hx of suicide attempt Irregular menses Low back pain Social History Smoking/Tobacco Use Status: Former Tobacco Use Smoking risk assessment performed?: Yes Alcohol Intake: current Alcohol Intake frequency: other Alcohol type: wine Drug use: Never Substance use type: does not use Household members: spouse and children Housing: apartment Number of Children: 3 Pets and animals: Yes Pets and animals: dog(s) and hamster(s) What is your relationship status?: Panel score (0-1 are the most socially isolated patients): 1 What type of physical activity do you participate in: yoga and additional Details: cardio Seatbelt use: always Do you feel safe at home: Yes Do you feel safe in your relationship?: Yes History History 5 Para 3 Hx # Term Pregnancies Multiple births Hx # Pregnancies Ectopic pregnancies AB induced Hx Number of Living Children AB spontaneous Exam Narrative Exam Narrative: GENERAL APPEARANCE: Well-nourished, non-toxic, awake and alert, atraumatic, no acute distress. SKIN: Warm, pink, dry, intact, without rashes/lesions/ulcerations. HEAD: Normocephalic, atraumatic, normal hair distribution for gender/age. EYES: Pupils PERRLA, EOMs intact without nystagmus, normal conjunctiva, no exudates on lids/lashes. ENT: Nares patent, no circumoral cyanosis, no facial swelling NECK: Supple, trachea midline, painless cervical ROM. LUNGS/CHEST: Lungs CTA bilaterally- no rhonchi/rales/wheezes diffusely, non-labored respirations, normal A/P diameter, symmetrical expansion, no chest wall deformity HEART (CV/PV): Mildly tachycardic rate and rhythm without murmur, no peripheral edema, no JVD. ABDOMEN: Soft, non-distended, voluntary guarding, exquisite LLQ tenderness, +Rovsing's, McBurney's point tenderness, less focal suprapubic tenderness. Pelvic: no bryan blood in vaginal vault, no purulent discharge, cervical os not well visualized, no adnexal severe tenderness. MSK: Normal ROM, no swelling/deformity to bilateral UEs or LEs, moving all extremities without weakness, no cyanosis, spine midline without tenderness, normal curvature. NEURO: Mental Status AAOx4 - alert to person, place, time, events No facial droop, no forehead involvement. Motor: No focal weakness - strength 5/5 in bilateral UEs and LEs, proximal and distal, symmetric. Sensory: sensation intact to light touch globally. Gait normal: patient ambulated without ataxia into ED room. PSYCH: euthymic, cooperative, pleasant, appropriate speech Course Vital Signs Vital signs: Vital Signs Temperature 36.4 C L 09/30/23 07:40 Pulse 100 H 09/30/23 07:40 Respiratory Rate 20 09/30/23 07:40 Blood Pressure 165/82 H 09/30/23 07:40 Pulse Oximetry 100 09/30/23 07:40 Temperature 36.4 C L 09/30/23 07:40 Temperature Source Oral 09/30/23 07:40 Pulse 100 H 09/30/23 07:40 Respiratory Rate 20 09/30/23 07:40 Blood Pressure 165/82 H 09/30/23 07:40 Blood Pressure Position Sitting 09/30/23 07:40 Pulse Oximetry 100 09/30/23 07:40 Oxygen Delivery Method Room Air 09/30/23 07:40 Oxygen Flow Rate 0 09/30/23 07:40
--- NOTE | 2023-09-30 07:59 | DI.US_ITS ---
Exam(s) US RENAL PELVIC TRANSVAGINAL EXAM: US RENAL PELVIC TRANSVAGINAL CLINICAL HISTORY: flank pain, now pelvic pain,bleeding,? torsion,abscess,fibroid,stone. TECHNIQUE: Ultrasound renal, pelvic, both abdmonal and tranvaginal was performed using standard prot ocol. COMPARISON: US US PELVIS TRANSVAGINAL from 09/16/2021 FINDINGS: RENAL: Renal size in cm: Right: 10.0 left: 10.8 Echogenicity: Normal. Hydronephrosis: No. Cyst or mass: No. Nephrolithiasis: No. Other findings: None. Bladder:Normal. Ureteral jets: Right: Visualized and unremarkable. Left: Visualized and unremarkable. Prevoid vol:39 cc Postvoid vol:0 cc Color: Symmetric and uniform flow to both kidneys. PELVIC: UTERUS: Position: Anteverted. Size: 8.9 x 5.1 x 6.4 cm Endometrium: 15 cm. Small amount of fluid/blood within endometrial cavity Myometrium: Unremarkable. Cervix: Unremarkable. OVARIES: Right: 1.4 x 4.2 x 5.5 cm cm Cyst or mass: 5.4 x 4.7 x 5.3 centimeter hemorrhagic cyst. No evidence of torsion Left: Not visualized. DOPPLER: Color: No hyperemia. Duplex: Normal ovarian arterial waveforms visualized. CUL-DE-SAC: Free fluid: None. IMPRESSION: 1. Normal sonographic appearance of the kidneys and bladder. 2. Small amount of fluid/hemorrhage within endometrial stripe. 3. Left ovary not visualized. 5.4 centimeter hemorrhagic cyst right ovary. DATA REPOSITORY:
[2023-09-30 08:15] LABS: Abs Immature Grans 0.01 10^3/uL (0.0-0.06); Absolute Basophil Count 0.02 10^3/uL (0.0-0.2); Absolute Eosinophil Count 0.35 10^3/uL (0.0-0.7); Absolute Lymphocyte Count 2.15 10^3/uL (1.2-3.4); Absolute Monocyte Count 0.33 10^3/uL (0.1-0.8); Absolute Neutrophil Count 2.83 10^3/uL (1.2-6.7); Basophils % 0.4; Eosinophils % 6.2; HCT 33.8 % (36.0-46.0); HGB 10.8 g/dL (11.2-15.7); Immature Grans % 0.2; Lymphocytes % 37.8; MCH 26.8 pg (27.0-33.0); MCV 84 fL (80-95); MPV 9.7 fL (8.0-11.0); Monocytes % 5.8; Neutrophils % 49.6; Platelet Count 189 10^3/uL (130-400); RBC 4.03 10^6/uL (3.93-5.22); RDW 16.2 % (11.7-14.6); RDW-SD 50.3 fL; WBC 5.69 10^3/uL (4.4-10.8)
[2023-09-30 08:29] LABS: PTT Activated 25.2 sec (23.6-32.8); Prothrombin Time 9.8 sec (9.1-11.1)
[2023-09-30 08:31] LABS: ALT 19 U/L (14-59); AST 14 U/L (15-37); Albumin 3.6 g/dL (3.4-5.0); Alkaline Phosphatase 86 U/L (46-116); Anion Gap 9.3 mmol/L (3-11); BUN 12 mg/dL (7-18); Bilirubin, Total 0.5 mg/dL (0.2-1.0); CO2 24.7 mmol/L (21.0-32.0); CREATININE 0.9 mg/dL (0.55-1.02); Calcium 8.9 mg/dL (8.5-10.1); Chloride 104 mmol/L (98-107); Estimated GFR 84.97 (mL/min/1.73m2); Glucose 123 mg/dL (74-106); Potassium 3.4 mmol/L (3.5-5.1); Sodium 138 mmol/L (136-145); Total Protein 7.7 g/dL (6.4-8.2)
[2023-09-30] MEDS: Normal Saline 1,000 ML 1000 ML IV (08:43)
[2023-09-30 09:40] VITALS: BP 141/92; PULSE 90; RESP 14; TEMP 36.7; O2SAT 100
[2023-09-30 09:52] LABS: Bilirubin Negative (Negative); Blood Large (Negative); Clarity Cloudy (Clear); Glucose Negative (Negative); Ketones Negative (Negative); Leukocyte Esterase Negative (Negative); Nitrite Negative (Negative); Specific Gravity 1.025 (1.005-1.025); Urobilinogen 0.2 mg/dL (Up to 0.2); pH 5.5 (5-8)
[2023-09-30 09:58] LABS: Bacteria Negative HPF (Negative); C & S Indicated? No; Casts Negative LPF (Negative); Crystals Negative HPF (Negative); Epithelial Cells Few HPF (Negative); Mucus Trace (Negative); RBC >50 HPF (0-2); WBC 0-2 HPF (0-5)
[2023-09-30 10:14] VITALS: BP 121/69; PULSE 87; RESP 20; TEMP 37.1; O2SAT 98
[2023-09-30] MEDS: Ketorolac 30 MG/ML VIAL 15 MG IVP (10:17)
[2023-09-30] MEDS: ACETAMINOPHEN 1,000 MG/100 ML BTL 400 MG IVPB (10:18)
--- NOTE | 2023-09-30 10:28 | GCONE_ITS ---
Date of service: 09/30/23 Time of Service: 10:28 Assessment and Plan Assessment and plan (1) Pelvic pain: Status: Acute Assessment and plan: Pelvic pain, and abnormal uterine bleeding and a history of a patient with polycystic ovarian syndrome. 5 cm hemorrhagic appearing ovarian cyst on ultrasound. Would recommend ovarian suppression with oral contraceptives. Prescription for sent to the pharmacy. Nonsteroidal pain medication. Close follow-up in the office in the next 1 to 2 weeks. (2) Hemorrhagic ovarian cyst: Status: Acute Assessment and plan: We will reassess for stability with ultrasound in approximately 4 to 6 weeks. (3) DUB (dysfunctional uterine bleeding): Status: Acute History of Present Illness History of Present Illness Chief Complaint: Heavy vaginal bleeding and pain Narrative: Patient seen and examined this morning. She states that she has had irregular bleeding over the course of the past approximately 3 weeks. In the last 4 days, her bleeding has become more heavy, and she has associated abdominal pain. For this reason, and slight dizziness, she presented to the emergency department. She had a full and thorough evaluation and on pelvic ultrasound was noted to have a 5 cm hemorrhagic ovarian cyst. There is no free intra-abdominal fluid. Her bleeding is mild to moderate. Initial hemoglobin was 10.8. She received IV Tylenol, and Toradol for her discomfort. She is having IV hydration. On my exam today, she looks appropriate, and not an extremis. Consults Consult date: 09/30/23 Review of Systems All systems reviewed & are unremarkable except as noted in HPI and below Eyes Eyes: Reports system reviewed and no additional complaints, except as documented Cardiovascular Cardiovascular: Reports system reviewed and no additional complaints, except as documented Respiratory Respiratory: Reports system reviewed and no additional complaints, except as documented Genitourinary Genitourinary: Reports as per HPI, Reports abnormal menses and Reports abnormal vaginal bleeding PFSH All Active Problems (Updated 09/30/23 @ 10:30 by Shantelle Glover DO) Hemorrhagic ovarian cyst (Acute) Delayed menses (Acute) Migraine headache without aura (Acute) Medication overuse headache (Acute) DUB (dysfunctional uterine bleeding) (Acute) Oligomenorrhea (Acute) Pelvic pain (Acute) Polycystic ovarian syndrome (Acute) Medical History Depression with anxiety Headache History of tobacco use Hx of suicide attempt Irregular menses Low back pain Social History Smoking/Tobacco Use Status: Former Tobacco Use Smoking risk assessment performed?: Yes Alcohol Intake: current Alcohol Intake frequency: other Alcohol type: wine Drug use: Never Substance use type: does not use Household members: spouse and children Housing: apartment Number of Children: 3 Pets and animals: Yes Pets and animals: dog(s) and hamster(s) What is your relationship status?: Panel score (0-1 are the most socially isolated patients): 1 What type of physical activity do you participate in: yoga and additional Details: cardio Seatbelt use: always Do you feel safe at home: Yes Do you feel safe in your relationship?: Yes History History 2 5 Para 3 Hx # Term Pregnancies Multiple births Hx # Pregnancies Ectopic pregnancies AB induced Hx Number of Living Children AB spontaneous Exam Const General: cooperative, healthy appearing, comfortable and no acute distress HENMT Head: normal to inspection Neck Neck: normal visual inspection Resp Effort & Inspection: normal respiratory effort, no cough and not labored Cardio Rate: regular rate Rhythm: regular rhythm GI Inspection: normal to inspection, no edema and non-distended Palpation: soft, not firm and no guarding Results Last Vital Signs Temp 98.8 F 09/30/23 10:14 Pulse 87 09/30/23 10:14 Resp 20 09/30/23 10:14 BP 121/69 09/30/23 10:14 Pulse Ox 98 09/30/23 10:14 Labs 09/30/23 08:08 09/30/23 08:08 Labs: Laboratory Results - last 24 hr 09/30/23 09/30/23 09/30/23 08:08 08:14 09:44 WBC 5.69 RBC 4.03 Hgb 10.8 L Hct 33.8 L MCV 84 MCH 26.8 L MCHC 32.0 RDW 16.2 H Plt Count 189 MPV 9.7 Immature Gran % 0.2 Neutrophils % 49.6 Lymphocytes % 37.8 Monocytes % 5.8 Eosinophils % 6.2 Basophils % 0.4 Nucleated RBC % 0.0 Absolute Neutrophils 2.83 Absolute Lymphocytes 2.15 Absolute Monocytes 0.33 Absolute Eosinophils 0.35 Absolute Basophils 0.02 PT 9.8 INR 1.0 APTT 25.2 VBG Lactate 3.0 H* Sodium 138 Potassium 3.4 L Chloride 104 Carbon Dioxide 24.7 Anion Gap 9.3 BUN 12 Creatinine 0.9 Est GFR (CKD-EPI 2020) 84.97 Glucose 123 H Calcium 8.9 Total Bilirubin 0.5 AST 14 L ALT 19 Alkaline Phosphatase 86 Total Protein 7.7 Albumin 3.6 Urine Color Red Urine Clarity Cloudy Urine pH 5.5 Ur Specific [place] 1.025 Urine Protein 30 H Urine Ketones Negative Urine Blood Large H Urine Nitrite Negative Urine Bilirubin Negative Urine Urobilinogen 0.2 Ur Leukocyte Esterase Negative Urine RBC >50 H Urine WBC 0-2 Ur Epithelial Cells Few Urine Crystals Negative Urine Bacteria Negative Urine Casts Negative Urine Mucus Trace Ur Culture Indicated? No Urine Glucose Negative Patient ABO/Rh O Positive Antibody Screen NEGATIVE
[2023-09-30 10:57] LABS: HCT 30.6 % (36.0-46.0)
[2023-10-01 15:50] LABS: Chlamydia Result Negative (Negative); GC Result Negative (Negative)
== END 2023-09-30 11:37 | disposition home or self-care (01) ==
PROVIDERS: Emergency Provider Physician Assistant; PCP Nurse Practitioner Family
DX: R10.2 Pelvic and perineal pain (principal); N83.201 Unspecified ovarian cyst, right side; N76.0 Acute vaginitis; B96.89 Other specified bacterial agents as the cause of diseases classified elsewhere
CPT/HCPCS: 36415; 76770; 80053; 81025; 86850; 86900; 86901; 87491; 87591; 96374; 96375; 99284; 76830; 76856; 81003; 81015; 83605; 85014; 85018; 85025; 85610; 85730; 87480; 87510; 87660; J0131; J1885

== ENCOUNTER 2025-06-17 20:01 | Emergency (ER) | payer MEDICAID, SELFPAY ==
--- NOTE | 2025-06-17 20:00 | RT.EKG_ITS ---
APPROVED REPORT Exam: Resting ECG Reason for Exam: Chest Pain Patient Location: E HR:82 bpm ECG Measurements Heart Rate 82 AXIS FL 159 P 71 QRSd 104 QRS 52 QT 383 T 56 QTc 448 Conclusion Sinus rhythm...normal P axis, V-rate 60- 99 Sinus Rhythm. No change from prior 12/24/22. WD
[2025-06-17 20:04] VITALS: BP 177/88; PULSE 91; RESP 20; TEMP 36.9; O2SAT 100
[2025-06-17 20:08] VITALS: RESP 20
--- NOTE | 2025-06-17 20:30 | DI.RAD_ITS ---
Exam(s) XR CHEST 2V PA LATERAL EXAM: XR CHEST 2V PA LATERAL CLINICAL HISTORY: chest pain. TECHNIQUE: 2D digital imaging was performed. COMPARISON: CR,XR XR PORTABLE CHEST AP from 12/24/2022 FINDINGS: 2 views: Heart size is normal. The mediastinum is not widened. Lungs are clear. No infiltrates nor pleural effusions. IMPRESSION: No acute pulmonary findings. DATA REPOSITORY: RADIATION DOSE DELIVERED:
[2025-06-17 20:57] LABS: Abs Immature Grans 0.01 10^3/uL (0.0-0.06); HCT 31.4 % (36.0-46.0); HGB 9.8 g/dL (11.2-15.7); Immature Grans % 0.2 %; MCH 25.8 pg (27.0-33.0); MCHC 31.2 % (32.0-36.0); MCV 83 fL (80-95); MPV 9.6 fL (8.0-11.0); Platelet Count 204 10^3/uL (130-400); RBC 3.80 10^6/uL (3.93-5.22); RDW 15.2 % (11.7-14.6); RDW-SD 45.9 fL; WBC 6.49 10^3/uL (4.4-10.8)
[2025-06-17 21:22] LABS: ALT 19 U/L (14-59); AST 16 U/L (15-37); Albumin 4.0 g/dL (3.4-5.0); Alkaline Phosphatase 89 U/L (46-116); Anion Gap 9.0 mmol/L (3-11); BUN 13 mg/dL (7-18); Bilirubin, Total 1.0 mg/dL (0.2-1.0); CO2 28.0 mmol/L (21.0-32.0); Calcium 9.2 mg/dL (8.5-10.1); Chloride 103 mmol/L (98-107); Estimated GFR 96.66 (mL/min/1.73m2); Glucose 102 mg/dL (74-106); Lipase 33 U/L (<78); Potassium 3.6 mmol/L (3.5-5.1); Sodium 140 mmol/L (136-145); Total Protein 8.1 g/dL (6.4-8.2)
[2025-06-17 21:30] LABS: Troponin I < 4 ng/L (<or=51)
[2025-06-17 22:31] VITALS: BP 114/78; PULSE 80; RESP 14; TEMP 36.9; O2SAT 98
--- NOTE | 2025-06-17 22:32 | DI.VRAD_ITS ---
PROCEDURE INFORMATION: Exam: XR Chest Exam date and time: 06/17/2025 9:17 PM Age: 39 years old Clinical indication: Chest wall pain TECHNIQUE: Imaging protocol: Radiologic exam of the chest. Views: 2 views. COMPARISON: CR XR PORTABLE CHEST AP 12/24/2022 3:40 AM FINDINGS: Lungs: No pulmonary consolidation is seen. Pleural spaces: No pleural effusion or pneumothorax is demonstrated. Heart/Mediastinum: The heart appears normal in size. Bones/joints: The visualized bony structures appear grossly intact. IMPRESSION: No active disease is seen in the chest. Dictated and Authenticated by: Delonte Garcia MD. Orderin Angy Valadez MD
--- NOTE | 2025-06-17 23:06 | ED.GENADUL_ITS ---
Discharge Plan Disposition Patient Disposition: Home Condition: Stable Discharge Details Clinical Impression: Acute chest wall pain Primary Care Provider: ESTEFANY ORTIZ ED Provider: Allyson Travis Home Meds and New Rx's Prescriptions: New cyclobenzaprine 10 mg tablet 10 mg PO TID PRNQty: 10 0RF Discharge Instructions Instructions: Chest Pain, Adult ED Additional Instructions: Flexeril as needed for musculoskeletal pain, do not drive or operate your vehicle for 8 hours after taking this medicine Take Motrin 600 mg every 8 hours with food the next 3 days Continue to take full ventilations if you do not develop pneumonia Please return should you develop new or worsening complaints including fever or chills or persistent/worsening pain Your tests today are reassuring Stand Alone Forms: Work Release HPI General Date/Time Provider Initiated Documentation: 06/17/25 20:44 . HPI Narrative: 39-year-old female with chest pain starting at 2200 hours while at rest. No recent back surgeries, long drives, coagulopathy, fever, chills, calf swelling, or tenderness. Related Data Home Medications ?Medication ?Instructions ?Recorded ?Confirmed cyclobenzaprine 10 mg tablet 10 mg PO TID PRN #10 tabs 06/17/25 Previous Rx's ?Medication ?Instructions ?Recorded cyclobenzaprine 10 mg tablet 10 mg PO TID PRN #10 tabs 06/17/25 Allergies Allergy/AdvReac Type Severity Reaction Status Date / Time sumatriptan Allergy Unknown Unknown Verified 06/17/25 20:10 dogs Allergy Mild Unknown Uncoded 06/17/25 20:10 General Stated Complaint: Chest Pain [place]: 3 Exam Narrative Exam Narrative: General Appearance: Alert and oriented, in no acute distress. Vital signs: Pulse 80, blood pressure stable. HEENT: Within normal limits. Respiratory: Lungs clear to auscultation, oxygen 100% on room air. Cardiovascular: No tachycardia. Back, Musculoskeletal: Reproducible chest wall tenderness. Skin: No rashes or lesions. Neurological: Normal. Course Vital Signs Vital signs: Vital Signs Temperature 36.9 C 06/17/25 20:04 Pulse 91 H 06/17/25 20:04 Respiratory Rate 06/17/25 20:04 Blood Pressure 177/88 H 06/17/25 20:04 Pulse Oximetry 100 06/17/25 20:04 Temperature 36.9 C 06/17/25 22:31 Temperature Source Oral 06/17/25 20:04 Pulse 80 06/17/25 22:31 Respiratory Rate 14 06/17/25 22:31 Respiratory Effort Short of Breath 06/17/25 20:08 Respiratory Depth Normal 06/17/25 20:08 Respiratory Pattern Normal 06/17/25 20:08 Blood Pressure 114/78 06/17/25 22:31 Blood Pressure Position Sitting 06/17/25 20:04 Pulse Oximetry 98 06/17/25 22:31 Oxygen Delivery Method Room Air 06/17/25 20:04 Oxygen Flow Rate 0 06/17/25 20:04 Pain Level 5 06/17/25 20:04 Lab/Test Results Lab/Test Results: Laboratory Tests Range/Units 06/17/25 06/17/25 06/17/25 20:50 21:44 23:44 WBC (4.4-10.8) 10^3/uL 6.49 RBC (3.93-5.22) 10^6/uL 3.80 L Hgb (11.2-15.7) g/dL 9.8 L Hct (36.0-46.0) % 31.4 L MCV (80-95) fL 83 MCH (27.0-33.0) pg 25.8 L MCHC (32.0-36.0) % 31.2 L RDW (11.7-14.6) % 15.2 H Plt Count (130-400) 10^3/uL 204 MPV (8.0-11.0) fL 9.6 Immature Gran % % 0.2 Neutrophils % % 56.8 Lymphocytes % % 32.7 Monocytes % % 5.9 Eosinophils % % 3.9 Basophils % % 0.5 Nucleated RBC % (0.0-0.3) % 0.0 Absolute Neutrophils (1.2-6.7) 10^3/uL 3.70 Absolute Lymphocytes (1.2-3.4) 10^3/uL 2.12 Absolute Monocytes (0.1-0.8) 10^3/uL 0.38 Absolute Eosinophils (0.0-0.7) 10^3/uL 0.25 Absolute Basophils (0.0-0.2) 10^3/uL 0.03 Sodium (136-145) mmol/L 140 Potassium (3.5-5.1) mmol/L 3.6 Chloride (98-107) mmol/L 103 Carbon Dioxide (21.0-32.0) mmol/L 28.0 Anion Gap (3-11) mmol/L 9.0 BUN (7-18) mg/dL 13 Creatinine (0.55-1.02) mg/dL 0.8 Est GFR (CKD-EPI 2020) (mL/min/1.73m2) 96.66 Glucose (74-106) mg/dL 102 Calcium (8.5-10.1) mg/dL 9.2 Total Bilirubin (0.2-1.0) mg/dL 1.0 AST (15-37) U/L 16 ALT (14-59) U/L 19 Alkaline Phosphatase (46-116) U/L 89 Troponin I (<or=51) ng/L < 4 Cancelled Cancelled Total Protein (6.4-8.2) g/dL 8.1 Albumin (3.4-5.0) g/dL 4.0 Lipase (<78) U/L 33 Medical Decision Making Hemoglobin 9.8 consistent with prior. Chest x-ray without acute abnormality. Per radiology interpretation of my review EKG nonischemic. Initial Assessment: 39-year-old female with chest pain starting at 2200 hours while at rest. Denies , recent back surgeries, long drives, coagulopathy, fever, chills, calf swelling, or tenderness. Alert and oriented, in no acute distress. Reproducible chest wall tenderness without rashes or lesions. Lungs clear to auscultation, oxygen 100% on room air, no tachycardia, pulse 80, blood pressure stable. Differential Diagnosis: - Pulmonary embolism: Rule out criteria negative. No further action. - Cardiac ischemia: EKG nonischemic. No further action. - Atypical chest wall pain: Reproducible tenderness, no acute abnormality on chest x-ray. Encouraged Sean De Santiago. ED Course: - CBC, CMP, troponin ordered - Hemoglobin 9.8 consistent with prior - EKG nonischemic - Chest x-ray without acute abnormality, read by radiology - Encouraged Sean De Santiago Final Assessment: Chest pain with reproducible tenderness, no acute abnormality on chest x-ray, EKG nonischemic, hemoglobin consistent with prior. Clinical Impression: - Atypical chest wall pain Disposition: - Discharge: Home, stable condition, return precautions reviewed and understood. Patient Education: Return precautions reviewed and patient expressed understanding. PFSH All Active Problems (Updated 06/17/25 @ 22:16 by BLAISE Shah) Acute chest wall pain (Acute) Hemorrhagic ovarian cyst (Acute) Delayed menses (Acute) Migraine headache without aura (Acute) Medication overuse headache (Acute) DUB (dysfunctional uterine bleeding) (Acute) Oligomenorrhea (Acute) Pelvic pain (Acute) Polycystic ovarian syndrome (Acute) Medical History Low back pain Irregular menses Hx of suicide attempt Depression with anxiety History of tobacco use Headache Social History Smoking/Tobacco Use Status: Former Tobacco Use Smoking risk assessment performed?: Yes Alcohol Intake: current Alcohol Intake frequency: other Alcohol type: wine Drug use: Never Substance use type: does not use Household members: spouse and children Housing: apartment Number of Children: 3 Pets and animals: Yes Pets and animals: dog(s) and hamster(s) What is your relationship status?: Panel score (0-1 are the most socially isolated patients): 1 What type of physical activity do you participate in: yoga and additional Details: cardio Seatbelt use: always Do you feel safe at home: Yes Do you feel safe in your relationship?: Yes History History 5 Para 3 Hx # Term Pregnancies Multiple births Hx # Pregnancies Ectopic pregnancies AB induced Hx Number of Living Children AB spontaneous
== END 2025-06-17 22:31 | disposition home or self-care (01) ==
PROVIDERS: Emergency Provider Physician Assistant; PCP Nurse Practitioner Family
DX: R07.9 Chest pain, unspecified (principal); R06.02 Shortness of breath; Z87.891 Personal history of nicotine dependence
CPT/HCPCS: 80053; 83690; 93005; 99285; 71046; 84484; 85025; 93010; 99284

== ENCOUNTER 2025-09-05 15:27 | Outpatient (REF) | payer MEDICAID, SELFPAY ==
[2025-09-09 11:27] LABS: GC Result Negative (Negative)
[2025-09-09 11:37] LABS: Chlamydia Result Positive (Negative)
== END 2025-09-05 15:28 | disposition home or self-care (01) ==
LOC: LBN 15:27
PROVIDERS: Obstetrics & Gynecology; PCP Nurse Practitioner Family; Visit Provider Advanced Practice Midwife
DX: N89.8 Other specified noninflammatory disorders of vagina (principal); Z11.3 Encounter for screening for infections with a predominantly sexual mode of transmission
CPT/HCPCS: 87491; 87591; 87480; 87510; 87660

== ENCOUNTER 2025-09-12 03:29 | Outpatient (CLI) | payer MEDICAID, SELFPAY ==
[2025-09-13 19:03] LABS: HIV-1/2 Ag & Ab Screen Negative (Negative)
[2025-09-16 15:45] LABS: Syphilis IgG w/Reflex Nonreactive (Nonreactive)
== END 2025-09-12 03:30 | disposition home or self-care (01) ==
LOC: LBO 03:29
PROVIDERS: PCP Nurse Practitioner Family; Visit Provider Advanced Practice Midwife
DX: Z11.3 Encounter for screening for infections with a predominantly sexual mode of transmission (principal)
CPT/HCPCS: 36415; 87389; 86780